=== PATIENT | female | born 1945 | race Caucasian/White ===

== ENCOUNTER 2016-07-07 15:03 | Inpatient (IN) | payer MEDICARE ==
--- NOTE | 2016-07-07 15:06 | ED Physician Chart ---
Chief Complaint/HPI - Patient Information Date Seen:: 07/07/16 Time Seen:: 15:06 Chief Complaint:: vomiting History of Present Illness:: 71-year-old female, complains of acute, constant, severe, nausea with associated vomiting since last night that started while she was eating dinner. He thinks that she may have a piece of meat stuck in her throat. Denies any trouble breathing. Allergies:: Allergies Allergy/AdvReac Type Severity Reaction Status Date / Time No Known Allergies Allergy Verified 11/01/15 21:23 Historian:: Patient Review:: Nurse's Note Reviewed Review of Systems - Review of Systems Other: Complete system review otherwise unremarkable except as noted in HPI. Past Medical History - Past Medical History Past Medical History: HTN, Other (glaucoma) Family History: None Social History: Non Smoker, No Alcohol, No Drug Use, Other Surgical History: None Psychiatricy History: None Medication: Reviewed Family Medical History - Family Member Mother History Unknown: Yes Physical Exam - Physical Examination Other:: INITIAL VITAL SIGNS: Reviewed by me GENERAL: Alert and interactive. No acute distress HEAD: Head is normocephalic and atraumatic EYES: EOMI. . No scleral icterus. No conjunctival injection ENT: Moist mucous membranes. NECK: Supple. No masses. Full range of motion RESPIRATORY: No tachypnea. Clear breath sounds bilaterally. No wheezing, rales, or rhonchi CV: Regular rate and rhythm. No murmurs, rubs, or gallops ABDOMEN: Soft, non-distended, non-tender. No guarding. No rebound. No masses. EXTREMITIES: No deformity. No cyanosis. No edema. SKIN: Warm and dry. No obvious rashes. NEUROLOGIC: Alert and oriented. Face is symmetric. Speech is normal. Moves all extremities equally. Motor and sensory distally intact. Labs/Radiology/EKG Results - Radiology Results Results: CT soft tissue neck and chest per radiology Dilated fluid-filled esophagus with hiatal hernia exact etiology uncertain correlate clinically ED Septic Shock - . Is Septic Shock (SBP<90, OR Lactate>4 mmol\L) present?: No Reassessment (Disposition) - Reassessment Reassessment:: Patient has esophageal foreign body likely food bolus. She is unable tolerate any by mouth substance. We did try at first giving multiple antiemetics via IV. Then we tried Carbonated beverages. However she immediately vomited. He T scan was performed confirming what looks like large food bolus. We tried 1 mg of glucagon. There seemed to be some improvement however the patient was unable to tolerate any by mouth substances. Skin is the case with Dr. Rock. She will likely need EGD. Dr. Rock as the primary care physician is also the admitting physician. He will admit the patient to his service for further workup and treatment. Reassessment Condition:: Unchanged - Diagnosis Diagnosis:: Esophageal foreign body Hypertension - Patient Disposition Discharge/Transfer:: Acute Care w/in this hosp Admitted to:: Med/Surg Admitting Medical Physician:: Francisco Rock Time:: 18:01 Condition at Disposition:: Stable ED Discharge Plan - Patient Disposition Admit/Discharge/Transfer: Acute Care w/in this hosp Instructions: Swallowed Foreign Body, Adult Accepting Physician: Francisco Rock [Primary Care Provider] -
[2016-07-07] MEDS ORDERED: Prochlorperazine 5 mg/mL 2mL Vial IVP STA (15:07)
[2016-07-07] MEDS ORDERED: Prochlorperazine 5 mg/mL 2mL Vial ONE (15:27)
[2016-07-07] MEDS ORDERED: Dexamethasone Sodium Phos 10 mg/mL PF Vial ONE (15:44)
[2016-07-07] MEDS ORDERED: Dexamethasone Sodium Phos 4 mg/mL Vial IVP STA (15:44)
[2016-07-07] MEDS ORDERED: GLUCAGON HCl 1 MG KIT IVP STA (15:49)
[2016-07-07] MEDS ORDERED: Sodium Chloride 0.9% 1,000 ML IV ONE (15:53)
[2016-07-07] MEDS ORDERED: GLUCAGON HCl 1 MG KIT ONE (16:26)
[2016-07-07] MEDS ORDERED: Albuterol Nebulizer 2.5mg/3mL IH PRN (18:17)
[2016-07-07] MEDS ORDERED: Maalox 30 mL Cup PO PRN (18:17)
[2016-07-07 18:18] LABS: HEMATOCRIT 38.8 % (35.0-45.0); HEMOGLOBIN 13.5 gm/dL (11.7-16.1); MEAN CELL VOLUME 88.2 fl (81-100); MEAN CORPUSCULAR HEMOGLOBIN 30.6 pg (27.0-31.0); MEAN CORPUSCULAR HGB CONC 34.7 pg (28.0-36.0); MEAN PLATELET VOLUME 7.8 fl; PLATELET COUNT 394 Th/cmm (150-400); RED CELL DISTRIBUTION WIDTH 13.3 % (11.5-20.0); WHITE BLOOD COUNT 18.7 Th/cmm (4.8-10.8)
[2016-07-07 18:30] LABS: INR 1.01 (0.5-1.4)
[2016-07-07 18:34] LABS: BUN - UREA NITROGEN 17 mg/dL (7-25); BUN/CREATININE RATIO 24.3; CALCIUM SERUM 9.3 mg/dL (8.6-10.3); CARBON DIOXIDE 24.3 mEq/L (21.0-31.0); CHLORIDE 106 mEq/L (98-107); CREATININE - SERUM 0.7 mg/dL (0.6-1.2); GLUCOSE 130 mg/dL (70-105); POTASSIUM SERUM 3.3 mEq/L (3.5-5.1); SODIUM SERUM 139 mEq/L (136-145)
[2016-07-07 18:35] LABS: NEUTROPHILS 90 % (40-80); PLATELET ESTIMATE ADEQUATE (NORMAL); PLATELET MORPHOLOGY NORMAL (NORMAL); TOTAL CELLS COUNTED 100
[2016-07-07 18:36] LABS: ALB/GLOB RATIO 1.5 (1.0-1.8); BILIRUBIN,TOTAL 0.4 mg/dL (0.3-1.0)
[2016-07-07 18:37] LABS: BILIRUBIN,DIRECT 0.06 mg/dL (0.0-0.2)
[2016-07-07] MEDS ORDERED: KCL 20mEq/100mL Premix 20 MEQ/100 ML PIGGYBACK IV ONE (18:39)
--- NOTE | 2016-07-07 19:28 | Admit Criteria Form ---
Admit Criteria Forms - Admit Criteria Diagnosis: ESOPHAGEAL DISEASE Clinical Indications for Admission to Inpatient Care (Place 'X' for any and all applicable criteria): Admission is indicated for ANY ONE of the following(1)(2)(3): [ ]I. Suspected esophageal perforation or fistula(6)(7) [ ]II. Complete esophageal obstruction [ ]III. Esophagitis with secondary mediastinitis [ ]IV. Severe acute radiation esophagitis [X]V. Inpatient admission required rather than observation care because of ANY ONE of the following: [ ]a) Vomiting that is severe or persistent [ ]b) Volume depletion that is severe or persistent [ ]c) Severe electrolyte abnormalities requiring inpatient care [ ]d) Severe pain requiring acute inpatient management [ ]e) Caustic ingestion related injury that requires inpatient care(8) [ ]f) High fever or infection requiring in pt. admission for ANY ONE of the following (9): [ ]1) Appropriate out pt. or observation care antimicrobial treatment not effective [ ]2) Documented bacteremia [ ]3) Temperature greater than 40.5 C (104.9 F ) (oral) [ ]4) Temperature over 103.1 F (39.5 degreesC)( oral) or under 96.8 F(36 degrees C, rectal) not responding to all emergency department treatment [ ]g) IV fluid to replace significant ongoing losses ( greater than 3 L/m2 per day) [ ]h) Percutaneous or open drainage (eg, abscess, biliary tract) procedures [ ]i) Parenteral nutrition regimen that must be implemented on inpatient basis [ ]j) Immediate inpatient surgery [X]k) Other condition, treatment or monitoring requiring inpatient admission Extended stay beyond goal length of stay may be needed for(1)(2)(3)(28): [ ]a) Continued severe esophageal dysfunction or obstruction [ ]b) Hemorrhagic esophagitis [ ]c) Severe caustic injury [ ]d) Tracheoesophageal fistula [ ]e) Esophageal perforation [ ]f) Mediastinitis The original [facility] content created by [employer] has been revised. The portions of the content which have been revised are identified through the use of italic text or in bold, and [facility] [employer] has neither reviewed nor approved the modified material. All other unmodified content is copyright [facility] [employer]. Please see references footnoted in the original [facility] edition 2016 Admit Criteria Met?: Yes
[2016-07-07] MEDS: D5-0.45NS 1,000 ML IV SCH (21:51)
[2016-07-07] MEDS: Metoclopramide 5 mg/mL 2mL Vial IVP SCH (22:36)
[2016-07-08 07:20] LABS: % BASOPHILS 0.7 % (0.0-2.0); % EOSINOPHILS 0.1 % (0.0-5.0); % LYMPHOCYTES 10.7 % (20.0-50.0); % MONOCYTES 7.1 % (2.0-10.0); % NEUTROPHILS 81.4 % (40.0-80.0); HEMATOCRIT 35.2 % (35.0-45.0); HEMOGLOBIN 12.2 gm/dL (11.7-16.1); MEAN CELL VOLUME 89.3 fl (81-100); MEAN CORPUSCULAR HEMOGLOBIN 30.9 pg (27.0-31.0); MEAN CORPUSCULAR HGB CONC 34.6 pg (28.0-36.0); PLATELET COUNT 385 Th/cmm (150-400); RED BLOOD COUNT 3.94 Mil/cmm (3.80-5.20); RED CELL DISTRIBUTION WIDTH 13.4 % (11.5-20.0)
[2016-07-08 07:23] LABS: ANION GAP 13.3 (7.0-16.0); BUN - UREA NITROGEN 22 mg/dL (7-25); BUN/CREATININE RATIO 31.4; CALCIUM SERUM 9.2 mg/dL (8.6-10.3); CHLORIDE 105 mEq/L (98-107); CREATININE - SERUM 0.7 mg/dL (0.6-1.2); GLUCOSE 137 mg/dL (70-105); MAGNESIUM 2.2 mg/dL (1.9-2.7); PHOSPHOROUS 2.4 mg/dL (2.5-5.0); POTASSIUM SERUM 3.3 mEq/L (3.5-5.1); SODIUM SERUM 139 mEq/L (136-145)
[2016-07-08 07:31] LABS: WHITE BLOOD COUNT 13.5 Th/cmm (4.8-10.8)
[2016-07-08] MEDS ORDERED: BRIMONIDINE TARTRATE OP SCH (09:00)
[2016-07-08] MEDS ORDERED: Non-Formulary Item 1 EA (Carvedilol [Coreg] 25 MG) PO SCH (09:00)
[2016-07-08] MEDS ORDERED: TIMOLOL OP SCH (09:00)
[2016-07-08] MEDS ORDERED: [UNRECOGNIZED DRUG - OTHER] OP SCH (09:00)
[2016-07-08] MEDS: Metoclopramide 5 mg/mL 2mL Vial IVP SCH ×3 (09:32→22:15)
[2016-07-08] MEDS: D5-0.45NS 1,000 ML IV SCH (09:53)
[2016-07-08 10:41] LABS: URINE BILIRUBIN NEGATIVE (NEGATIVE); URINE BLOOD TRACE (NEGATIVE); URINE COLOR YELLOW; URINE GLUCOSE (UA) NEGATIVE (NEGATIVE); URINE KETONE NEGATIVE (NEGATIVE); URINE PROTEIN NEGATIVE (NEGATIVE); URINE UROBILINOGEN 0.2 E.U./dL (0.2 - 1.0)
[2016-07-08 10:47] LABS: URINE BACTERIA MANY /hpf (NONE SEEN); URINE EPITHELIAL CELLS FEW /lpf (FEW); URINE RBC 0-2 /hpf (0-5)
--- NOTE | 2016-07-08 11:26 | Diagnostic Imaging Report ---
CT soft tissue neck without IV contrast HISTORY: Pain, vomiting, rule out esophageal foreign body COMPARISON: CT chest the same day. Technique: Axial images were obtained from the base of the skull to the upper thorax without IV contrast. Instructions were made. Total DLP 333, CTD I 12.5 Findings: Exam is limited due to lack of IV contrast. The bilateral parapharyngeal fat planes are preserved. The bilateral parotid and submandibular glands are unremarkable. 3 mm calcification of the left lower thyroid gland is seen with possible small left hypodense nodule in this region. The airway is intact. No prevertebral soft tissue swelling. The epiglottis is unremarkable. Air and fluid distended esophagus is partially visualized. Nonspecific jugular chain lymph nodes are noted bilaterally. Moderate atherosclerosis is noted. Degenerative changes of the spine are noted greatest at C5/C6 and C6/C7. IMPRESSION: Air and fluid distention of the esophagus, partially visualized. No radiopaque foreign body identified. Please refer to follow-up CT chest for further findings. Intact airway Atherosclerotic vascular disease.
--- NOTE | 2016-07-08 11:37 | Diagnostic Imaging Report ---
CT Chest without IV contrast HISTORY: Pain nausea rule out foreign body within the esophagus COMPARISON: CT neck the same day. Technique: Axial images were obtained from the base of the neck to the upper abdomen without IV contrast. Reconstructions were made. Total DLP 156, CTD I 3.9 Findings: No evidence of mediastinal lymphadenopathy. Note evaluation of mediastinum was limited due to lack of IV contrast. Diffuse atherosclerotic vascular disease is seen with coronary artery calcifications. The heart size is normal. No pericardial effusion. There is fluid distention of the esophagus with soft tissue density and possible food contents along the distal esophagus measuring 2.5 cm. Calcified right hilar lymph nodes are noted. The lung abdi demonstrates chronic changes with areas of subsegmental atelectasis versus scarring. Small granulomas of the lungs are also noted. Small 4 to 5 mm nodular opacities of the right lung base are noted. No focal consolidation or effusions. The upper abdomen demonstrates a 1 cm low-density lesion of the liver right left lobe of the liver too small to characterize but suggestive of a cyst. Additional subcentimeter low densities lesion is seen to small to characterize. Punctate nonobstructive left renal stones are noted. Splenic granulomas are degenerative changes of the spine are noted. 5 mm sclerotic focus of the T12 vertebral body is noted. IMPRESSION: Dilated air and fluid-filled esophagus. There is soft tissue density along the distal esophagus. Findings favor possible stuck food contents or less likely other mass lesions causing possible obstruction. Clinical correlation and follow-up is recommended. Endoscopy would be of value for further assessment if needed. Chronic lung changes with evidence of prior granulomatous disease. 4 to 5 mm nodular opacities of the right lung base are noted which is nonspecific and may be due to prior infectious inflammatory process. Follow-up CT in 6-12 months may be obtained for further assessment/monitoring. Punctate nonobstructive left renal calculi. 5 mm sclerotic focus of the T12 vertebral body possibly representing a bone island. Clinical correlation and Correlation with old exams would be helpful for comparison. Alternatively, short-term follow-up surveillance exams may also be obtained to ensure stability. Atherosclerotic vascular disease. Please refer to above report for details.
[2016-07-08] MEDS ORDERED: Potassium Chloride 40 MEQ, Lidocaine 1% 20mL Vial 25 MG in Sodium Chloride 0.9% 250 ML IV ONE (14:00)
[2016-07-08] MEDS ORDERED: Lidocaine 2% Gel 5 mL TP ONE (15:00)
[2016-07-08] MEDS ORDERED: Meperidine 25 mg/mL 1mL Syr IVP PRN (15:20)
[2016-07-08] MEDS ORDERED: Lactated Ringer 1,000 ML IV SCH (15:30)
--- NOTE | 2016-07-08 19:48 | Operative Report ---
PROCEDURE: 1. Esophagogastroduodenoscopy with removal of foreign body by pushing it down to the stomach. 2. Esophagogastroduodenoscopy with biopsy. INDICATION FOR PROCEDURE: Foreign body in esophagus. CONSENT: Informed consent was obtained from the patient after outlining benefits and risks including infection, bleeding, perforation, . ANESTHESIA USED: Propofol given by anesthesiologist. PREOPERATIVE DIAGNOSIS: Dysphagia due to foreign body. POSTOPERATIVE DIAGNOSES: 1. Dysphagia due to foreign body, status post removal of foreign body by pushing it down to the stomach. 2. Severe esophagitis. 3. Gastritis. DESCRIPTION OF PROCEDURE: The patient was placed in left lateral position. Upper Olympus endoscope was introduced into the mouth and advanced to the esophagus, which was intubated under direct visualization. Esophageal mucosa was examined on the way down. The food bolus was seen in the mid esophagus, which was pushed down gently till the GE junction and then pushed to the stomach. Then, scope was withdrawn up. There was area of esophagitis circumferential, about 1 inch above the Z-line. There was white membrane covering the whole thing. Scope was advanced to the stomach where the gastric mucosa was examined. It showed gastritis. Scope was retroflexed to examine the cardia and fundus. It showed the food bolus, but no other lesion was seen. Scope was then straightened and advanced through the pylorus into the duodenum, where the bulb and second parts were examined. They were both normal. Scope was withdrawn to the stomach. Biopsies were taken from the antrum for CLOtest. Then, scope was withdrawn to the esophagus and biopsies were taken from the area was esophagitis. Scope was then withdrawn. The patient tolerated the procedure well. There were no immediate postoperative complications. RECOMMENDATIONS: 1. Follow up biopsy results. 2. Protonix. 3. Soft diet. 4. Repeat endoscopy in a few months for further evaluation. Thank you, Dr. Rock, for allowing me to participate in the care of the patient. If you have any further questions, please let me know. JOB# [id number]
--- NOTE | 2016-07-09 05:55 | Consultation ---
REASON FOR CONSULTATION: Foreign body in esophagus and dysphagia. HISTORY OF PRESENT ILLNESS: This consult was obtained through the courtesy of Dr. Rock for this 71-year-old with history of hypertension and glaucoma, presenting to the hospital with nausea and vomiting following swallowing a piece of meat. The patient stated it happened last night. She was eating and then she felt food stuck in her throat. She vomited a little bit, but still not feeling good and feeding the food stuck there. No prior episodes. PAST MEDICAL HISTORY: Hypertension and glaucoma. SOCIAL HISTORY: Nonsmoker, nonalcoholic and IV drug abuser. PAST SURGICAL HISTORY: Negative. ALLERGIES: No known drug allergy. MEDICATIONS: The patient is started on Tylenol, Maalox, albuterol, Benadryl, lactated Ringer, Demerol, Reglan, Zofran, Protonix and lidocaine. REVIEW OF SYSTEMS: No weight loss. No hematemesis, melena or hematochezia. PHYSICAL EXAMINATION: GENERAL: The patient is awake and oriented to self, place and time, in mild distress. VITAL SIGNS: Blood pressure 118/49, heart rate 73, respiratory rate 18 and temperature is 98.7. HEAD AND NECK: Pupils reactive to light. Extraocular muscles are intact. Sclerae are anicteric, conjunctivae not pale. Oral cavity, no lesion. NECK: Supple. No jugular venous distention and no carotid bruit or lymph nodes. CHEST: Good respiratory movements. LUNGS: Clear to auscultation. CARDIOVASCULAR SYSTEM: Regular rate and rhythm. No murmur or gallop. ABDOMEN: Soft. Positive bowel sounds. Mild epigastric tenderness. EXTREMITIES: Lower extremities, no edema. CENTRAL NERVOUS SYSTEM: Nonfocal. LABORATORY DATA: White count is 13.5. Rest of CBC unremarkable. Potassium 3.3. The patient had a CT of the neck, which showed air and fluid distention of the esophagus. IMPRESSION: This 71-year-old with dysphagia following swallowing a piece of meat. ASSESSMENT AND PLAN: Dysphagia, most likely is due to the piece of meat. The patient will need an EGD as soon as possible to remove it and then further recommendations to follow. Possibly the patient had a stricture over Schatzki's ring or severe esophagitis. So, we will do EGD and remove the foreign body through dilation, biopsy, etc. Other medical problems such as glaucoma and hypertension as per Dr. Rock. Thank you, Dr. Rock for allowing me to participate in the care of the patient. If you have any further questions, please let me know. JOB# [id number] [email or web address]
[2016-07-09 07:22] LABS: % BASOPHILS 1.4 % (0.0-2.0); % EOSINOPHILS 1.6 % (0.0-5.0); % LYMPHOCYTES 37.2 % (20.0-50.0); % MONOCYTES 9.3 % (2.0-10.0); % NEUTROPHILS 50.5 % (40.0-80.0); HEMATOCRIT 34.1 % (35.0-45.0); MEAN CELL VOLUME 89.6 fl (81-100); MEAN CORPUSCULAR HEMOGLOBIN 31.5 pg (27.0-31.0); MEAN CORPUSCULAR HGB CONC 35.2 pg (28.0-36.0); MEAN PLATELET VOLUME 8.5 fl; NEUTROPHILE ABSOLUTE 4.7 Th/cmm (1.8-8.0); PLATELET COUNT 341 Th/cmm (150-400); RED BLOOD COUNT 3.81 Mil/cmm (3.80-5.20); RED CELL DISTRIBUTION WIDTH 13.5 % (11.5-20.0)
[2016-07-09 07:24] LABS: WHITE BLOOD COUNT 9.3 Th/cmm (4.8-10.8)
[2016-07-09 07:35] LABS: ANION GAP 8.9 (7.0-16.0); BUN - UREA NITROGEN 15 mg/dL (7-25); CALCIUM SERUM 8.9 mg/dL (8.6-10.3); CARBON DIOXIDE 25.7 mEq/L (21.0-31.0); CHLORIDE 106 mEq/L (98-107); CREATININE - SERUM 0.6 mg/dL (0.6-1.2); GLUCOSE 105 mg/dL (70-105); POTASSIUM SERUM 3.6 mEq/L (3.5-5.1); SODIUM SERUM 137 mEq/L (136-145)
[2016-07-09] MEDS: Metoclopramide 5 mg/mL 2mL Vial IVP SCH (09:10)
--- NOTE | 2016-07-09 12:05 | Internal Medicine Prog Note ---
Internal Medicine Subjective - Subjective Service Date: 07/09/16 (dc summary [id number]) Internal Medicine Objective - Results Result Diagrams: 07/09/16 06:00 07/09/16 06:00 Recent Labs: Laboratory Last Values WBC 9.3 Th/cmm (4.8-10.8) D 07/09/16 06:00 RBC 3.81 Mil/cmm (3.80-5.20) 07/09/16 06:00 Hgb 12.0 gm/dL (11.7-16.1) 07/09/16 06:00 Hct 34.1 % (35.0-45.0) L 07/09/16 06:00 MCV 89.6 fl (81-100) 07/09/16 06:00 MCH 31.5 pg (27.0-31.0) H 07/09/16 06:00 MCHC Differential 35.2 pg (28.0-36.0) 07/09/16 06:00 RDW 13.5 % (11.5-20.0) 07/09/16 06:00 Plt Count 341 Th/cmm (150-400) 07/09/16 06:00 MPV 8.5 fl 07/09/16 06:00 Neutrophils % 50.5 % (40.0-80.0) 07/09/16 06:00 Lymphocytes % 37.2 % (20.0-50.0) 07/09/16 06:00 Monocytes % 9.3 % (2.0-10.0) 07/09/16 06:00 Eosinophils % 1.6 % (0.0-5.0) 07/09/16 06:00 Basophils % 1.4 % (0.0-2.0) 07/09/16 06:00 Neutrophils (Manual) 90 % (40-80) H 07/07/16 18:10 Lymphocytes 8 % (20-50) L 07/07/16 18:10 Monocytes 2 % (2-10) 07/07/16 18:10 Platelet Estimate ADEQUATE (NORMAL) 07/07/16 18:10 Platelet Morphology NORMAL (NORMAL) 07/07/16 18:10 RBC Morph Micro Appear NORMAL (NORMAL) 07/07/16 18:10 PT 10.0 SECONDS (9.5-11.5) 07/07/16 18:10 INR 1.01 (0.5-1.4) 07/07/16 18:10 PTT (Actin FS) 25.6 SECONDS (26.0-38.0) L 07/07/16 18:10 Sodium 137 mEq/L (136-145) 07/09/16 06:00 Potassium 3.6 mEq/L (3.5-5.1) 07/09/16 06:00 Chloride 106 mEq/L (98-107) 07/09/16 06:00 Carbon Dioxide 25.7 mEq/L (21.0-31.0) 07/09/16 06:00 Anion Gap 8.9 (7.0-16.0) 07/09/16 06:00 BUN 15 mg/dL (7-25) 07/09/16 06:00 Creatinine 0.6 mg/dL (0.6-1.2) 07/09/16 06:00 Est GFR ( Amer) TNP 07/09/16 06:00 Est GFR (Non-Af Amer) TNP 07/09/16 06:00 BUN/Creatinine Ratio 25.0 07/09/16 06:00 Glucose 105 mg/dL (70-105) 07/09/16 06:00 Hemoglobin A1c % 5.9 % (4.0-6.0) 07/09/16 06:00 Calcium 8.9 mg/dL (8.6-10.3) 07/09/16 06:00 Phosphorus 2.4 mg/dL (2.5-5.0) L 07/08/16 06:40 Magnesium 2.0 mg/dL (1.9-2.7) 07/09/16 06:00 Total Bilirubin 0.4 mg/dL (0.3-1.0) 07/07/16 18:10 Direct Bilirubin 0.06 mg/dL (0.0-0.2) 07/07/16 18:10 AST 18 U/L (13-39) 07/07/16 18:10 ALT 14 U/L (7-52) 07/07/16 18:10 Alkaline Phosphatase 51 U/L (34-104) 07/07/16 18:10 Ammonia 51 umol/L (16-53) 07/08/16 06:40 B-Natriuretic Peptide 112.0 pg/mL (5.0-100.0) H 07/08/16 06:40 Total Protein 7.5 gm/dL (6.0-8.3) 07/07/16 18:10 Albumin 4.5 gm/dL (3.7-5.3) 07/07/16 18:10 Globulin 3.0 gm/dL 07/07/16 18:10 Albumin/Globulin Ratio 1.5 (1.0-1.8) 07/07/16 18:10 Lipase 29 U/L (11-82) 07/07/16 18:10 Tumor Marker AFP 2.0 ng/mL (0.0-8.3) 07/07/16 18:10 CA 19-9 Antigen 91 U/mL (0-35) H 07/07/16 18:10 CA 125 Antigen 6.9 U/mL (0.0-38.1) 07/07/16 18:10 TSH 3.25 uIU/ml (0.34-5.60) 07/07/16 18:43 Urine Source CLEAN C 07/08/16 09:30 Urine Color YELLOW 07/08/16 09:30 Urine Clarity SL. CLOUDY (CLEAR) 07/08/16 09:30 Urine pH 6.0 07/08/16 09:30 Ur Specific [place] 1.025 (1.005-1.030) 07/08/16 09:30 Urine Protein NEGATIVE mg/dL (NEGATIVE) 07/08/16 09:30 Urine Glucose (UA) NEGATIVE mg/dL (NEGATIVE) 07/08/16 09:30 Urine Ketones NEGATIVE mg/dL (NEGATIVE) 07/08/16 09:30 Urine Blood TRACE (NEGATIVE) 07/08/16 09:30 Urine Nitrate POSITIVE (NEGATIVE) H 07/08/16 09:30 Urine Bilirubin NEGATIVE (NEGATIVE) 07/08/16 09:30 Urine Urobilinogen 0.2 E.U./dL (0.2 - 1.0) 07/08/16 09:30 Ur Leukocyte Esterase NEGATIVE (NEGATIVE) 07/08/16 09:30 Urine RBC 0-2 /hpf (0-5) 07/08/16 09:30 Urine WBC 2-5 /hpf (0-5) 07/08/16 09:30 Ur Epithelial Cells FEW /lpf (FEW) 07/08/16 09:30 Urine Bacteria MANY /hpf (NONE SEEN) 07/08/16 09:30 - Physical Exam Vitals and I&O: Vital Signs Temp 98.0 F 07/09/16 08:00 Pulse 66 07/09/16 09:49 Resp 20 07/09/16 09:49 BP 131/59 07/09/16 08:00 Pulse Ox 98 07/09/16 09:49 Intake & Output 07/08/16 07/09/16 07/09/16 18:59 06:59 18:59 Intake Total 1262.667 Balance 1262.667 Intake: Intake, IV Amount 962.667 D5-0.45NS 1,000 ml @ 80 962.667 mls/hr IV .[id number] [facility] Rx #:[id number] Oral 300 Active Medications: Current Medications Acetaminophen (Tylenol 650mg Supp) 650 mg RC Q6H PRN PRN Reason: Fever > 101 Stop: 09/05/16 18:44 Al Hydrox/Mg Hydrox/Simethicone (Maalox) 30 ml PO Q6HR PRN PRN Reason: Constipation Stop: 09/05/16 18:16 Albuterol Sulfate (Albuterol 2.5mg/3ml Neb Ud) 2.5 mg IH Q2HR PRN PRN Reason: Shortness of Breath or Wheeze Stop: 09/05/16 18:16 Diphenhydramine HCl (Benadryl 50 Mg/Ml) 25 mg IVP Q4HR PRN PRN Reason: Itching Stop: 09/05/16 18:20 Dorzolamide HCl (Trusopt 2% Ophth Soln) 1 drop EACH EYE BID [facility] Stop: 09/06/16 08:59 Last Admin: 07/09/16 09:09 Dose: 1 drop Heparin Sodium (Porcine) (Heparin) 5,000 units SUBQ Q12HR [facility] Stop: 09/05/16 20:59 Last Admin: 07/09/16 09:10 Dose: Not Given Dextrose/Sodium Chloride (D5-0.45ns) 1,000 mls @ 80 mls/hr IV .[id number] [facility] Stop: 09/05/16 18:29 Last Admin: 07/08/16 09:53 Dose: 80 mls/hr Latanoprost (Xalatan 0.005% Ophth Soln) 1 drop EACH EYE HS [facility] Stop: 09/06/16 20:59 Last Admin: 07/08/16 22:15 Dose: Not Given Metoclopramide HCl (Reglan) 5 mg IVP TID [facility] Stop: 09/05/16 20:59 Last Admin: 07/09/16 09:10 Dose: 5 mg Miscellaneous (Brimonidine Tartrate/Timolol [Combigan 0.2%-0.5% Eye Drops]) 1 drop OP BID [facility] Stop: 09/06/16 08:59 Ondansetron HCl (Zofran) 4 mg IV Q8H PRN PRN Reason: Nausea / Vomiting Stop: 09/05/16 18:16 Last Admin: 07/08/16 04:02 Dose: 4 mg Pantoprazole Sodium (Protonix) 40 mg IVP BID [facility] Stop: 09/06/16 08:59 Last Admin: 07/09/16 09:10 Dose: 40 mg
[2016-07-09 13:19] LABS: FOLIC ACID >20.0 ng/mL (>3.0)
--- NOTE | 2016-07-09 19:57 | Discharge Summary ---
Dictated for Dr. Francisco Rock. FINAL DIAGNOSES: 1. Dysphagia which was likely due to a piece of meat. Esophagogastroduodenoscopy was done and so was removed. 2. Hypertension. 3. Glaucoma. HISTORY OF PRESENT ILLNESS: This is a 71-year-old female with a history of hypertension and glaucoma, who was admitted to [facility] with complaints of nausea, vomiting, after swallowing a piece of meat. The patient stated that it happened the night before she came here. She felt like the meat was stuck in her throat. For this reason, the patient was admitted. PHYSICAL EXAMINATION: GENERAL: The patient is well developed, well nourished, in no acute distress. VITAL SIGNS: Stable. HEENT: Head is normocephalic and atraumatic. NECK: Supple. No mass. LUNGS: Clear. CARDIOVASCULAR: Regular rate rhythm. ABDOMEN: Soft, nontender, and nondistended. HOSPITAL COURSE: During the hospital stay, the patient was admitted to the telemetry unit. The patient had a consultation with Dr. Akbar. Dr. Akbar saw the patient and an EGD was done on 07/08/2016. The patient tolerated the procedure well. The piece of meat that was stuck in her throat was pushed down. Therefore, the patient was stable for discharge. CONDITION UPON DISCHARGE: Fair. DISPOSITION: The patient is going home. I educated the patient to follow up with Dr. Akbar in 6 months. JOB# [id number]
--- NOTE | 2016-07-10 14:21 | Pathology Report ---
[id number] Collection date: 07/08/2016 Surgeon: Dr. Dorothy Akbar Specimen Description: Biopsy Distal Esophagus Gross Description: Received in formalin are two powell soft tissue fragments ranging from 0.1 to 0.2 cm in greatest dimension. Totally submitted in one cassette. Microscopic Description: The histologic sections show extensively ulcerated tissue consisting of large collections of neutrophils within a degenerated and necrotic background. There are no intact mucosal tissue fragments. The Alcian blue stain shows no significant abnormalities. The PAS stain shows no evidence for fungal organisms. Diagnosis: Ulcerated tissue consisting of large collections of neutrophils, consistent with esophageal ulcer (distal esophageal biopsy). Comment: Evaluation is limited by the extensive ulceration present, with no intact mucosal tissue fragments appreciated in this specimen. Recommend clinical correlation to determine if follow-up studies are warranted. [facility]# [id number] MTDGhanshyam
--- NOTE | 2016-09-04 12:24 | History & Physical ---
ADMIT DATE: 07/07/2016 CHIEF COMPLAINT: Abdominal pain, intractable vomiting. HISTORY OF PRESENT ILLNESS: This is a 71 years old female with history of hypertension and glaucoma who was admitted through the ER secondary to vomiting for the last 48 hours. The patient states that she had something from [employer], some [place] food and did not feel better after that. The patient had been vomiting and went to the ER, threw out some undigested food that has been there for several hours. The patient admitted for further management. PAST MEDICAL HISTORY: As mentioned in history of present illness. PAST SURGICAL HISTORY: ____. ALLERGIES: No known drug allergies. MEDICATIONS: The patient is on ____ medications as well as Coreg and Norvasc. FAMILY HISTORY: Noncontributory. SOCIAL HISTORY: She used to smoke. Nondrinker. No intravenous drug use. 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 The patient is with 1 child. REVIEW OF SYSTEMS: GENERAL: The patient complains not feeling well. HEENT: Having difficulty swallowing. LUNGS: Negative COPD or asthma. HEART: The patient has hypertension ____. ABDOMEN: As mentioned in the history of present illness. NEUROLOGIC: No headache, seizure, or syncope. PSYCHIATRIC: The patient denies. PHYSICAL EXAMINATION: VITAL SIGNS: Blood pressure 118/49, respirations 18, pulse 73 and temperature ____. GENERAL: Elderly female, appears stated age. NECK: Supple. No mass. LUNGS: Decreased breath sounds, few rhonchi. HEART: Regular rate and rhythm without appreciable murmur. ABDOMEN: Soft and nontender. Positive bowel sounds. ____. SKIN: No skin tear or lacerations. EXTREMITIES: No clubbing, cyanosis or edema. LABORATORY DATA: WBC 18.7, hemoglobin 13, platelets 394. Sodium ____, potassium 3.3, BUN 17, creatinine 0.7, blood sugar 137. BNP 112. UA, essentially negative except for positive nitrite. ASSESSMENT: ____ obstruction, abdominal pain, intractable vomiting, leukocytosis, hypertension, glaucoma, hypokalemia, hypoglycemia. PLAN: We will correct electrolyte abnormalities. Case was discussed with Dr. Akbar, the logistic specialist. The patient scheduled for upper endoscopy, hold on beta-blockers for now. We will keep the patient n.p.o. Continue proton pump inhibitor as well as prokinetics. We will discuss the ____ with family members. JOB# [id number]
== END 2016-07-09 12:45 | disposition home or self-care (01) | DRG 395 ==
LOC: ER 15:03 → TELE 20:15
PROVIDERS: ADMIT Internal Medicine; ATTEND Internal Medicine
PROC: 0DB68ZX Excision of Stomach, Via Natural or Artificial Opening Endoscopic, Diagnostic (ICD-10-PCS; principal; 2016-07-08)
PROC: 0DC68ZZ Extirpation of Matter from Stomach, Via Natural or Artificial Opening Endoscopic (ICD-10-PCS; 2016-07-08)
PROC: 0DB58ZX Excision of Esophagus, Via Natural or Artificial Opening Endoscopic, Diagnostic (ICD-10-PCS; 2016-07-08)
DX: T18.128A Food in esophagus causing other injury, initial encounter (principal); R13.10 Dysphagia, unspecified; I10 Essential (primary) hypertension; H40.9 Unspecified glaucoma; K20.9 Esophagitis, unspecified; K29.70 Gastritis, unspecified, without bleeding; X58.XXXA Exposure to other specified factors, initial encounter; Y93.89 Activity, other specified; Y92.89 Other specified places as the place of occurrence of the external cause; Y99.8 Other external cause status
CPT/HCPCS: 36415-UA; 70490-TC; 71250-TC; 80048-TC; 80076-TC; 81001-TC; 82105-90; 82140-TC; 82607-90; 82746-90; 83036-90; 83690-TC; 83735-TC; 83880-TC; 84100-TC; 84443-TC; 85007-TC; 85025-TC; 85027-TC; 85610-TC; 85730-TC; 86301-90; 86304-90; 87338-TC; 88305-90; 88312-90; 88313-90; 93005; 94760; 96374; 96375; C9113; J0780; J1610; J1644; J2001; J2405; J2704; J2765; J3480; J7030; Z7610